=== PATIENT | male | born 1960 | race American Indian/Alaskan Native ===

== ENCOUNTER 2022-01-10 17:05 | Inpatient (IN) | payer MEDICAID ==
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
[2022-01-11] MEDS: FOLIC ACID 1 MG TAB PO SCH (09:55)
[2022-01-11] MEDS: DULoxetine 30 MG CAP PO SCH ×2 (09:55→21:19)
[2022-01-11] MEDS: PREGABALIN 50 MG CAP PO SCH (09:55)
[2022-01-11] MEDS: THIAMINE 100 MG TAB PO SCH (09:55)
[2022-01-11] MEDS: amLODIPine 10 MG TAB PO SCH (09:55)
[2022-01-11] MEDS: NICOTINE 14 MG/24 HR PATCH TD SCH (09:59)
[2022-01-11] MEDS ORDERED: NON-FORMULARY EACH (Pregabalin [Lyrica] 100 MG Capsule) PO SCH (10:00)
--- NOTE | 2022-01-11 11:44 | Consultation ---
History of Present Illness - History of Present Illness HPI: 61-year-old male with past medical history of hypertension, chronic pain, bipolar disorder presenting to our facility with complaint of ongoing depression x3 weeks. He was seen at [facility] for suicidal ideation and auditory hallucinations several weeks back. He is not currently suicidal. Patient does have a significant polysubstance abuse history. Internal medicine service consulted for medical management. PMHx: Essential hypertension, chronic pain PSHx: Denies FHx: Reviewed noncontributory SHx: Tobacco use-admits ETOH Use-admits Recreational Drug Use-admits, crack, THC Single, homeless Medications and Allergies Allergies Allergy/AdvReac Type Severity Reaction Status Date / Time aspirin AdvReac Angioedema Verified 11/15/21 18:58 nitroglycerin AdvReac Swelling Verified 11/15/21 15:19 Home Medications Medication Instructions Recorded Confirmed Last Taken Type Folic Acid [Folvite] 1 mg PO QDAY 11/15/21 01/11/22 Unknown History Losartan [Cozaar] 100 mg PO QDAY 11/15/21 01/11/22 Unknown History Pregabalin [Lyrica] 100 mg PO DAILY 11/15/21 01/11/22 11/16/21 10:00 History Thiamine [Vitamin B-1] 100 mg PO QDAY 11/15/21 01/11/22 Unknown History amLODIPine 10 mg PO DAILY 11/15/21 01/11/22 Unknown History DULoxetine [Cymbalta] 60 mg PO BID #120 capsule 11/22/21 01/11/22 Unknown Rx Melatonin [Melatonin 5MG TAB] 5 mg PO QHS PRN #30 tablet 11/22/21 01/11/22 Unknown Rx Nicotine [Habitrol] 14 mg TD DAILY #30 patch 11/22/21 01/11/22 Unknown Rx QUEtiapine [SEROquel] 100 mg PO QAM #30 tablet 11/22/21 01/11/22 Unknown Rx QUEtiapine [SEROquel] 300 mg PO QHS #90 tablet 11/22/21 01/11/22 Unknown Rx Active Meds: Active Medications Amlodipine Besylate (Amlodipine 10 Mg Tab) 10 mg PO DAILY [facility] Last Admin: 01/11/22 09:55 Dose: Not Given Duloxetine HCl (Duloxetine 30 Mg Cap) 60 mg PO BID [facility] Last Admin: 01/11/22 09:55 Dose: 60 mg Folic Acid (Folic Acid 1 Mg Tab) 1 mg PO QDAY [facility] Last Admin: 01/11/22 09:55 Dose: 1 mg Melatonin (Melatonin 5 Mg Tab) 5 mg PO QHS PRN PRN Reason: Sleep Nicotine (Nicotine 14 Mg/24 Hr Patch) 14 mg TD DAILY [facility] Last Admin: 01/11/22 09:59 Dose: 14 mg Pregabalin (Pregabalin 50 Mg Cap) 100 mg PO DAILY [facility] Last Admin: 01/11/22 09:55 Dose: 100 mg Quetiapine Fumarate (Quetiapine 25 Mg Tab) 50 mg PO QHS [facility] Thiamine HCl (Thiamine 100 Mg Tab) 100 mg PO QDAY [facility] Last Admin: 01/11/22 09:55 Dose: 100 mg Review of Systems All systems: negative (Negative except for stated in HPI) Exam - Physical Exam Narrative exam: Physical Exam: VITAL SIGNS: Reviewed. GENERAL: The patient appears normally developed, Vital signs as documented. HEAD: No signs of head trauma. EYES: Pupils are equal. Extraocular motions intact. EARS: Hearing grossly intact. MOUTH: Oropharynx is normal. NECK: No adenopathy, no JVD. CHEST: Chest with clear breath sounds bilaterally. No wheezes, rales, or rhonchi. CARDIAC: Regular rate and rhythm. S1 and S2, without murmurs, gallops, or rubs. VASCULAR: No Edema. Peripheral pulses normal and equal in all extremities. ABDOMEN: Soft, non tender and non distended. No rebound or guarding, and no masses palpated. Bowel Sounds normal. MUSCULOSKELETAL: Good range of motion of all major joints. Extremities without clubbing, cyanosis or edema. NEUROLOGIC EXAM: Alert and oriented x 4. no focal sensory or strength deficits. PSYCHIATRIC: Mood normal. SKIN: detail exam as documented in skin assessment - Constitutional Vitals: Temp Pulse Resp BP Pulse Ox 97.5 F L 105 H 16 108/80 98 01/11/22 07:37 01/11/22 09:55 01/11/22 07:37 01/11/22 09:55 01/11/22 07:37 Results - Labs CBC & Chem 7: 01/11/22 13:40 01/11/22 13:40 Assessment and Plan #Bipolar disorder #Depression #Chronic pain #Hypertension #Obstructive sleep apnea #Obesity Hypoventilation Syndrome #Polysubstance abuse #Methamphetamine abuse #THC abuse #Cocaine abuse #Alcohol abuse - behavioral health counseling administered which included education on benefits of alcohol cessation as well as options for quitting. +15 min. #Advance care planning Disease education conducted, care plan discussed, diagnoses discussed, prognosis discussed, patient is full code, patient acknowledges understanding and agree with care plan, +30 minutes. Plan -Psychiatric medication management per inpatient psych service -Monitor blood pressure daily -Accu-Cheks ACHS -Resume amlodipine Resume home pregabalin, duloxetine. - patient also takes oxycodone 10/325 mg po tid per [place] PDMP aware. will restart but at lower dose. can escalate if pain is still not under control. - would also recommend bipap qhs as patient has ohs. Was seen on a prior admission at [facility] and had PM hypoxia and daytime somnelence without bipap. -Laboratory work pending, will follow-up when completed. IM service will continue to follow while patient remains in hospital.
[2022-01-11 13:53] LABS: Basophils % (Auto) 0.4 % (0.0-1.8); Eosinophils # (Auto) 0.1 K/mm3 (0.0-0.4); Eosinophils % (Auto) 1.8 % (0.0-4.3); Hematocrit 42.9 % (35.5-45.6); Hemoglobin 14.8 gm/dl (11.8-15.2); Lymphocytes # (Auto) 1.1 K/mm3 (1.2-5.4); Lymphocytes % (Auto) 24.5 % (13.4-35.0); Mean Corpuscular HGB Conc 35 % (32-34); Mean Corpuscular Volume 99 fl (84-94); Monocytes # (Auto) 0.6 K/mm3 (0.0-0.8); Platelet Count 182 K/mm3 (140-440); Red Blood Count 4.35 M/mm3 (3.65-5.03); Red Cell Distribution Width 17.7 % (13.2-15.2)
[2022-01-11 14:19] LABS: Alanine Aminotransferase 30 units/L (7-56); Albumin 3.8 g/dL (3.9-5); BUN/Creatinine Ratio 11; Blood Urea Nitrogen 9 mg/dL (9-20); Calcium 9.9 mg/dL (8.4-10.2); Chol/HDL Ratio 1.75 %; HDL Cholesterol 101 mg/dL (40-59); Hemolysis Index 8; LDL Cholesterol,Direct 59 mg/dL (50-130)
[2022-01-11 14:21] LABS: Hepatitis B Surface Antigen Non-Reactive (Negative); Hepatitis C Virus Antibody Reactive (NonReactive)
[2022-01-11] MEDS ORDERED: oxyCODONE /ACETAMINOPHEN 5-325MG TAB PO PRN (15:24)
[2022-01-11] MEDS: MELATONIN 5 MG TAB PO PRN (21:16)
[2022-01-11] MEDS: oxyCODONE /ACETAMINOPHEN 5-325MG TAB PO PRN ×2 (21:17→21:19)
[2022-01-11] MEDS: QUEtiapine 25 MG TAB PO SCH (21:18)
--- NOTE | 2022-01-12 08:28 | Progress Note ---
Assessment and Plan Assessment and plan: #Bipolar disorder #Depression #Chronic pain #Hypertension #Obstructive sleep apnea #Obesity Hypoventilation Syndrome #Polysubstance abuse #Methamphetamine abuse #THC abuse #Cocaine abuse #Alcohol abuse - behavioral health counseling administered which included education on benefits of alcohol cessation as well as options for quitting. +15 min. #Advance care planning Disease education conducted, care plan discussed, diagnoses discussed, prognosis discussed, patient is full code, patient acknowledges understanding and agree with care plan, +30 minutes. Plan -Psychiatric medication management per inpatient psych service -Monitor blood pressure daily -Accu-Cheks ACHS -Resume amlodipine Resume home pregabalin, duloxetine. - patient also takes oxycodone 10/325 mg po tid per [place] PDMP aware. will restart but at lower dose. can escalate if pain is still not under control. - d/w government affairs specialist, patient had been eval OP for JORGE LUIS, did not need bipap. BIPAP order d/c. -Laboratory work pending, will follow-up when completed. IM service will continue to follow while patient remains in hospital. History Interval history: No acute complaints. Hospitalist Physical - Physical exam Narrative exam: Physical Exam: VITAL SIGNS: Reviewed. GENERAL: The patient appears normally developed, Vital signs as documented. HEAD: No signs of head trauma. EYES: Pupils are equal. Extraocular motions intact. EARS: Hearing grossly intact. MOUTH: Oropharynx is normal. NECK: No adenopathy, no JVD. CHEST: Chest with clear breath sounds bilaterally. No wheezes, rales, or rhonchi. CARDIAC: Regular rate and rhythm. S1 and S2, without murmurs, gallops, or rubs. VASCULAR: No Edema. Peripheral pulses normal and equal in all extremities. ABDOMEN: Soft, non tender and non distended. No rebound or guarding, and no masses palpated. Bowel Sounds normal. MUSCULOSKELETAL: Good range of motion of all major joints. Extremities without clubbing, cyanosis or edema. NEUROLOGIC EXAM: Alert and oriented x 4. no focal sensory or strength deficits. PSYCHIATRIC: Mood normal. SKIN: detail exam as documented in skin assessment - Constitutional Vitals: Temp Pulse Resp BP Pulse Ox 98.3 F 86 16 131/86 98 01/12/22 07:32 01/12/22 07:32 01/12/22 07:32 01/12/22 07:32 01/12/22 07:32 Results - Labs CBC & Chem 7: 01/11/22 13:40 01/11/22 13:40 Labs: Laboratory Last Values WBC 4.3 K/mm3 (4.5-11.0) L 01/11/22 13:40 RBC 4.35 M/mm3 (3.65-5.03) 01/11/22 13:40 Hgb 14.8 gm/dl (11.8-15.2) 01/11/22 13:40 Hct 42.9 % (35.5-45.6) 01/11/22 13:40 MCV 99 fl (84-94) H 01/11/22 13:40 MCH 34 pg (28-32) H 01/11/22 13:40 MCHC 35 % (32-34) H 01/11/22 13:40 RDW 17.7 % (13.2-15.2) H 01/11/22 13:40 Plt Count 182 K/mm3 (140-440) 01/11/22 13:40 Lymph % (Auto) 24.5 % (13.4-35.0) 01/11/22 13:40 Barron % (Auto) 13.0 % (0.0-7.3) H 01/11/22 13:40 Eos % (Auto) 1.8 % (0.0-4.3) 01/11/22 13:40 Baso % (Auto) 0.4 % (0.0-1.8) 01/11/22 13:40 Lymph # (Auto) 1.1 K/mm3 (1.2-5.4) L 01/11/22 13:40 Barron # (Auto) 0.6 K/mm3 (0.0-0.8) 01/11/22 13:40 Eos # (Auto) 0.1 K/mm3 (0.0-0.4) 01/11/22 13:40 Baso # (Auto) 0.0 K/mm3 (0.0-0.1) 01/11/22 13:40 Seg Neutrophils % 60.3 % (40.0-70.0) 01/11/22 13:40 Seg Neutrophils # 2.6 K/mm3 (1.8-7.7) 01/11/22 13:40 Sodium 137 mmol/L (137-145) 01/11/22 13:40 Potassium 3.6 mmol/L (3.6-5.0) 01/11/22 13:40 Chloride 98.9 mmol/L (98-107) 01/11/22 13:40 Carbon Dioxide 26 mmol/L (22-30) 01/11/22 13:40 Anion Gap 16 mmol/L 01/11/22 13:40 BUN 9 mg/dL (9-20) 01/11/22 13:40 Creatinine 0.8 mg/dL (0.8-1.3) 01/11/22 13:40 Estimated GFR > 60 ml/min 01/11/22 13:40 BUN/Creatinine Ratio 11 % 01/11/22 13:40 Glucose 127 mg/dL (75-100) H 01/11/22 13:40 Hemoglobin A1c 6.0 % (4-6) 01/11/22 13:40 Calcium 9.9 mg/dL (8.4-10.2) 01/11/22 13:40 Total Bilirubin 0.50 mg/dL (0.1-1.2) 01/11/22 13:40 AST 41 units/L (5-40) H 01/11/22 13:40 ALT 30 units/L (7-56) 01/11/22 13:40 Alkaline Phosphatase 104 units/L (35-129) 01/11/22 13:40 Total Protein 6.9 g/dL (6.3-8.2) 01/11/22 13:40 Albumin 3.8 g/dL (3.9-5) L 01/11/22 13:40 Albumin/Globulin Ratio 1.2 % 01/11/22 13:40 Triglycerides 96 mg/dL (2-149) 01/11/22 13:40 Cholesterol 177 mg/dL (50-199) 01/11/22 13:40 LDL Cholesterol Direct 59 mg/dL (50-130) 01/11/22 13:40 HDL Cholesterol 101 mg/dL (40-59) H 01/11/22 13:40 Cholesterol/HDL Ratio 1.75 % 01/11/22 13:40 TSH 1.610 mlU/mL (0.270-4.200) 01/11/22 13:40 Hepatitis A IgM Ab Non-reactive (NonReactive) 01/11/22 13:40 Hep Bs Antigen Non-reactive (Negative) 01/11/22 13:40 Hep B Core IgM Ab Non-reactive (NonReactive) 01/11/22 13:40 Hepatitis C Antibody Reactive (NonReactive) A 01/11/22 13:40 Gamino/IV: Voiding Method Toilet Active Medications - Current Medications Current Medications: Generic Name Dose Route Start Last Admin Trade Name Freq PRN Reason Stop Dose Admin Amlodipine Besylate 10 mg 01/11/22 10:00 01/11/22 09:55 Amlodipine 10 Mg Tab PO Not Given DAILY [facility] Duloxetine HCl 60 mg 01/11/22 10:00 01/11/22 21:19 Duloxetine 30 Mg Cap PO Not Given BID [facility] Folic Acid 1 mg 01/11/22 10:00 01/11/22 09:55 Folic Acid 1 Mg Tab PO 1 mg QDAY [facility] Administration Melatonin 5 mg 01/11/22 09:07 01/11/22 21:16 Melatonin 5 Mg Tab PO 5 mg QHS PRN Administration Sleep Nicotine 14 mg 01/11/22 10:00 01/11/22 09:59 Nicotine 14 Mg/24 Hr Patch TD 14 mg DAILY [facility] Administration Oxycodone/Acetaminophen 1 tab 01/11/22 18:23 01/11/22 21:19 Oxycodone /Acetaminophen 5-325mg Tab PO 1 tab Q12H PRN Administration Pain, Moderate (4-6) Pregabalin 100 mg 01/11/22 10:00 01/11/22 09:55 Pregabalin 50 Mg Cap PO 100 mg DAILY [facility] Administration Quetiapine Fumarate 50 mg 01/11/22 22:00 01/11/22 21:18 Quetiapine 25 Mg Tab PO 50 mg QHS [facility] Administration Thiamine HCl 100 mg 01/11/22 10:00 01/11/22 09:55 Thiamine 100 Mg Tab PO 100 mg QDAY [facility] Administration
--- NOTE | 2022-01-12 09:13 | Progress Note ---
Subjective Date of service: 01/12/22 Principal diagnosis: Bipolar Disorder Subjective Comment: The patient was seen today. He is irritable and evasive. He hardly talks and rolls over and pulls the cover up. He says he's depressed about his health and "all sorts of stuff." He denies SI/HI or hallucinations. REVIEW OF SYSTEMS Constitutional: Negative for weight loss ENT: Negative for stridor Respiratory: Negative for cough or hemoptysis All other systems reviewed and are negative MENTAL STATUS EXAMINATION General Appearance and Behavior: Age appropriate, wearing appropriate clothes, cooperative, polite with questioning, good eye contact Cooperation: cooperative Psychomotor Behavior: Psychomotor normal Mood: Depressed Affect and affective range: congruent with stated affect Thought Process: Goal directed Thought Content: Reality oriented Speech: Normal volume, Regular rate and rhythm Suicidal Ideation: Denies Homicidal Ideation: Denies Hallucination: Denies Delusions:Denies Impulse Control: Limited Insight and Judgment: Limited Memory: Intact Attention:attentive Orientation: Alert and oriented Diagnoses: Bipolar disorder Treatment Plan Patient admitted for inpatient psychiatric evaluation, medication adjustment and close monitoring The patient's behavior, mood, sleep and appetite will be closely monitored. Patient enrolled in individual and group therapeutic sessions and encouraged to attend. Patient provided with a safe and structured environment. Patient's physical health needs will be addressed by the Hospitalist. Hospitalist Consulted Labs including CBC, CMP, Lipid profile and Hemoglobin A1C levels ordered for baseline reference Social Assessment will be completed and the Debt And Budget Counselor will work with patient and family to ensure a suitable and safe disposition Medication adjustment will be made as clinically indicated Continue home meds Usual Wellness Bahai/Preservation: - Start Trazodone 50 mg po QHS & 50 mg po QHS PRN between 10 PM & 2 AM for insomnia - Start Melatonin 5 mg po QHS to promote circadian rhythm The patient agreed on the treatment plan, understood the risk, benefit, alternative treatment, potential consequence of no treatment, and gave informed consent. Estimated days: 7 Post hospital care: primary care provider, psychiatric provider Case staffed with Dr. Fischer Medications and Allergies Allergies Allergy/AdvReac Type Severity Reaction Status Date / Time aspirin AdvReac Angioedema Verified 11/15/21 18:58 nitroglycerin AdvReac Swelling Verified 11/15/21 15:19 Home Medications Medication Instructions Recorded Confirmed Last Taken Type Folic Acid [Folvite] 1 mg PO QDAY 11/15/21 01/11/22 Unknown History Losartan [Cozaar] 100 mg PO QDAY 11/15/21 01/11/22 Unknown History Pregabalin [Lyrica] 100 mg PO DAILY 11/15/21 01/11/22 11/16/21 10:00 History Thiamine [Vitamin B-1] 100 mg PO QDAY 11/15/21 01/11/22 Unknown History amLODIPine 10 mg PO DAILY 11/15/21 01/11/22 Unknown History DULoxetine [Cymbalta] 60 mg PO BID #120 capsule 11/22/21 01/11/22 Unknown Rx Melatonin [Melatonin 5MG TAB] 5 mg PO QHS PRN #30 tablet 11/22/21 01/11/22 Unknown Rx Nicotine [Habitrol] 14 mg TD DAILY #30 patch 11/22/21 01/11/22 Unknown Rx QUEtiapine [SEROquel] 100 mg PO QAM #30 tablet 11/22/21 01/11/22 Unknown Rx QUEtiapine [SEROquel] 300 mg PO QHS #90 tablet 11/22/21 01/11/22 Unknown Rx Active Meds: Active Medications Amlodipine Besylate (Amlodipine 10 Mg Tab) 10 mg PO DAILY [facility] Last Admin: 01/11/22 09:55 Dose: Not Given Duloxetine HCl (Duloxetine 30 Mg Cap) 60 mg PO BID [facility] Last Admin: 01/11/22 21:19 Dose: Not Given Folic Acid (Folic Acid 1 Mg Tab) 1 mg PO QDAY [facility] Last Admin: 01/11/22 09:55 Dose: 1 mg Melatonin (Melatonin 5 Mg Tab) 5 mg PO QHS PRN PRN Reason: Sleep Last Admin: 01/11/22 21:16 Dose: 5 mg Nicotine (Nicotine 14 Mg/24 Hr Patch) 14 mg TD DAILY [facility] Last Admin: 01/11/22 09:59 Dose: 14 mg Oxycodone/Acetaminophen (Oxycodone /Acetaminophen 5-325mg Tab) 1 tab PO Q12H PRN PRN Reason: Pain, Moderate (4-6) Last Admin: 01/11/22 21:19 Dose: 1 tab Pregabalin (Pregabalin 50 Mg Cap) 100 mg PO DAILY [facility] Last Admin: 01/11/22 09:55 Dose: 100 mg Quetiapine Fumarate (Quetiapine 25 Mg Tab) 50 mg PO QHS [facility] Last Admin: 01/11/22 21:18 Dose: 50 mg Thiamine HCl (Thiamine 100 Mg Tab) 100 mg PO QDAY [facility] Last Admin: 01/11/22 09:55 Dose: 100 mg Results - Results Labs/Vitals: Laboratory Last Values WBC 4.3 K/mm3 (4.5-11.0) L 01/11/22 13:40 RBC 4.35 M/mm3 (3.65-5.03) 01/11/22 13:40 Hgb 14.8 gm/dl (11.8-15.2) 01/11/22 13:40 Hct 42.9 % (35.5-45.6) 01/11/22 13:40 MCV 99 fl (84-94) H 01/11/22 13:40 MCH 34 pg (28-32) H 01/11/22 13:40 MCHC 35 % (32-34) H 01/11/22 13:40 RDW 17.7 % (13.2-15.2) H 01/11/22 13:40 Plt Count 182 K/mm3 (140-440) 01/11/22 13:40 Lymph % (Auto) 24.5 % (13.4-35.0) 01/11/22 13:40 [place] % (Auto) 13.0 % (0.0-7.3) H 01/11/22 13:40 Eos % (Auto) 1.8 % (0.0-4.3) 01/11/22 13:40 Baso % (Auto) 0.4 % (0.0-1.8) 01/11/22 13:40 Lymph # (Auto) 1.1 K/mm3 (1.2-5.4) L 01/11/22 13:40 [place] # (Auto) 0.6 K/mm3 (0.0-0.8) 01/11/22 13:40 Eos # (Auto) 0.1 K/mm3 (0.0-0.4) 01/11/22 13:40 Baso # (Auto) 0.0 K/mm3 (0.0-0.1) 01/11/22 13:40 Seg Neutrophils % 60.3 % (40.0-70.0) 01/11/22 13:40 Seg Neutrophils # 2.6 K/mm3 (1.8-7.7) 01/11/22 13:40 Sodium 137 mmol/L (137-145) 01/11/22 13:40 Potassium 3.6 mmol/L (3.6-5.0) 01/11/22 13:40 Chloride 98.9 mmol/L (98-107) 01/11/22 13:40 Carbon Dioxide 26 mmol/L (22-30) 01/11/22 13:40 Anion Gap 16 mmol/L 01/11/22 13:40 BUN 9 mg/dL (9-20) 01/11/22 13:40 Creatinine 0.8 mg/dL (0.8-1.3) 01/11/22 13:40 Estimated GFR > 60 ml/min 01/11/22 13:40 BUN/Creatinine Ratio 11 % 01/11/22 13:40 Glucose 127 mg/dL (75-100) H 01/11/22 13:40 Hemoglobin A1c 6.0 % (4-6) 01/11/22 13:40 Calcium 9.9 mg/dL (8.4-10.2) 01/11/22 13:40 Total Bilirubin 0.50 mg/dL (0.1-1.2) 01/11/22 13:40 AST 41 units/L (5-40) H 01/11/22 13:40 ALT 30 units/L (7-56) 01/11/22 13:40 Alkaline Phosphatase 104 units/L (35-129) 01/11/22 13:40 Total Protein 6.9 g/dL (6.3-8.2) 01/11/22 13:40 Albumin 3.8 g/dL (3.9-5) L 01/11/22 13:40 Albumin/Globulin Ratio 1.2 % 01/11/22 13:40 Triglycerides 96 mg/dL (2-149) 01/11/22 13:40 Cholesterol 177 mg/dL (50-199) 01/11/22 13:40 LDL Cholesterol Direct 59 mg/dL (50-130) 01/11/22 13:40 HDL Cholesterol 101 mg/dL (40-59) H 01/11/22 13:40 Cholesterol/HDL Ratio 1.75 % 01/11/22 13:40 TSH 1.610 mlU/mL (0.270-4.200) 01/11/22 13:40 Hepatitis A IgM Ab Non-reactive (NonReactive) 01/11/22 13:40 Hep Bs Antigen Non-reactive (Negative) 01/11/22 13:40 Hep B Core IgM Ab Non-reactive (NonReactive) 01/11/22 13:40 Hepatitis C Antibody Reactive (NonReactive) A 01/11/22 13:40 Last Vital Signs Temp 98.3 F 01/12/22 07:32 Pulse 86 01/12/22 07:32 Resp 16 01/12/22 07:32 BP 131/86 01/12/22 07:32 Pulse Ox 98 01/12/22 07:32
[2022-01-12] MEDS: FOLIC ACID 1 MG TAB PO SCH (10:23)
[2022-01-12] MEDS: amLODIPine 10 MG TAB PO SCH (10:23)
[2022-01-12] MEDS: DULoxetine 30 MG CAP PO SCH ×2 (10:23→21:01)
[2022-01-12] MEDS: PREGABALIN 50 MG CAP PO SCH (10:23)
[2022-01-12] MEDS: THIAMINE 100 MG TAB PO SCH (10:23)
[2022-01-12] MEDS: NICOTINE 14 MG/24 HR PATCH TD SCH (10:26)
[2022-01-12] MEDS: oxyCODONE /ACETAMINOPHEN 5-325MG TAB PO PRN ×2 (10:30→22:21)
--- NOTE | 2022-01-12 13:53 | XRay Report ---
CHEST 1 VIEW 01/12/2022 12:05 PM INDICATION / CLINICAL INFORMATION: r/o TB. COMPARISON: 11/20/2021 FINDINGS: SUPPORT DEVICES: None. HEART / MEDIASTINUM: No significant abnormality. LUNGS / PLEURA: No significant pulmonary or pleural abnormality. No pneumothorax. ADDITIONAL FINDINGS: No significant additional findings. IMPRESSION: 1. No acute findings. Signer Name: Jet Chinchilla Jr, MD Signed: 01/12/2022 1:49 PM Workstation Name: [id number]
[2022-01-12] MEDS: MELATONIN 5 MG TAB PO PRN (21:02)
[2022-01-12] MEDS: QUEtiapine 25 MG TAB PO SCH (21:02)
--- NOTE | 2022-01-13 08:23 | Progress Note ---
Subjective Date of service: 01/13/22 Principal diagnosis: Bipolar Disorder Subjective Comment: The patient was seen today. He says he feels ok, but states he did not sleep well. He is asking for an increase of seroquel. He says he is depressed but feels a little better. He denies SI/HI or hallucinations of any kind. REVIEW OF SYSTEMS Constitutional: Negative for weight loss ENT: Negative for stridor Respiratory: Negative for cough or hemoptysis All other systems reviewed and are negative MENTAL STATUS EXAMINATION General Appearance and Behavior: Age appropriate, wearing appropriate clothes, cooperative, polite with questioning, good eye contact Cooperation: cooperative Psychomotor Behavior: Psychomotor normal Mood: Depressed Affect and affective range: congruent with stated affect Thought Process: Goal directed Thought Content: Reality oriented Speech: Normal volume, Regular rate and rhythm Suicidal Ideation: Denies Homicidal Ideation: Denies Hallucination: Denies Delusions: Denies Impulse Control: Limited Insight and Judgment: Limited Memory: Intact Attention:attentive Orientation: Alert and oriented Diagnoses: Bipolar disorder Treatment Plan Patient admitted for inpatient psychiatric evaluation, medication adjustment and close monitoring The patient's behavior, mood, sleep and appetite will be closely monitored. Patient enrolled in individual and group therapeutic sessions and encouraged to attend. Patient provided with a safe and structured environment. Patient's physical health needs will be addressed by the Hospitalist. Hospitalist Consulted Labs including CBC, CMP, Lipid profile and Hemoglobin A1C levels ordered for baseline reference Social Assessment will be completed and the Metal Trimmer will work with patient and family to ensure a suitable and safe disposition Medication adjustment will be made as clinically indicated Increase Seroquel 100mg po qhs Usual Wellness Mu-Ism/Preservation: - Start Trazodone 50 mg po QHS & 50 mg po QHS PRN between 10 PM & 2 AM for insomnia - Start Melatonin 5 mg po QHS to promote circadian rhythm The patient agreed on the treatment plan, understood the risk, benefit, alternative treatment, potential consequence of no treatment, and gave informed consent. Estimated days: 7 Post hospital care: primary care provider, psychiatric provider Case staffed with Dr. Fischer Medications and Allergies Allergies Allergy/AdvReac Type Severity Reaction Status Date / Time aspirin AdvReac Angioedema Verified 11/15/21 18:58 nitroglycerin AdvReac Swelling Verified 11/15/21 15:19 Home Medications Medication Instructions Recorded Confirmed Last Taken Type Folic Acid [Folvite] 1 mg PO QDAY 11/15/21 01/11/22 Unknown History Losartan [Cozaar] 100 mg PO QDAY 11/15/21 01/11/22 Unknown History Pregabalin [Lyrica] 100 mg PO DAILY 11/15/21 01/11/22 11/16/21 10:00 History Thiamine [Vitamin B-1] 100 mg PO QDAY 11/15/21 01/11/22 Unknown History amLODIPine 10 mg PO DAILY 11/15/21 01/11/22 Unknown History DULoxetine [Cymbalta] 60 mg PO BID #120 capsule 11/22/21 01/11/22 Unknown Rx Melatonin [Melatonin 5MG TAB] 5 mg PO QHS PRN #30 tablet 11/22/21 01/11/22 Unknown Rx Nicotine [Habitrol] 14 mg TD DAILY #30 patch 11/22/21 01/11/22 Unknown Rx QUEtiapine [SEROquel] 100 mg PO QAM #30 tablet 11/22/21 01/11/22 Unknown Rx QUEtiapine [SEROquel] 300 mg PO QHS #90 tablet 11/22/21 01/11/22 Unknown Rx Active Meds: Active Medications Amlodipine Besylate (Amlodipine 10 Mg Tab) 10 mg PO DAILY [facility] Last Admin: 01/12/22 10:23 Dose: 10 mg Duloxetine HCl (Duloxetine 30 Mg Cap) 60 mg PO BID [facility] Last Admin: 01/12/22 21:01 Dose: Not Given Folic Acid (Folic Acid 1 Mg Tab) 1 mg PO QDAY [facility] Last Admin: 01/12/22 10:23 Dose: 1 mg Melatonin (Melatonin 5 Mg Tab) 5 mg PO QHS PRN PRN Reason: Sleep Last Admin: 01/12/22 21:02 Dose: 5 mg Nicotine (Nicotine 14 Mg/24 Hr Patch) 14 mg TD DAILY [facility] Last Admin: 01/12/22 10:26 Dose: Not Given Oxycodone/Acetaminophen (Oxycodone /Acetaminophen 5-325mg Tab) 1 tab PO Q12H PRN PRN Reason: Pain, Moderate (4-6) Last Admin: 01/12/22 22:21 Dose: 1 tab Pregabalin (Pregabalin 50 Mg Cap) 100 mg PO DAILY [facility] Last Admin: 01/12/22 10:23 Dose: 100 mg Quetiapine Fumarate (Quetiapine 25 Mg Tab) 50 mg PO QHS [facility] Last Admin: 01/12/22 21:02 Dose: 50 mg Thiamine HCl (Thiamine 100 Mg Tab) 100 mg PO QDAY [facility] Last Admin: 01/12/22 10:23 Dose: 100 mg Results - Results Labs/Vitals: Laboratory Last Values WBC 4.3 K/mm3 (4.5-11.0) L 01/11/22 13:40 RBC 4.35 M/mm3 (3.65-5.03) 01/11/22 13:40 Hgb 14.8 gm/dl (11.8-15.2) 01/11/22 13:40 Hct 42.9 % (35.5-45.6) 01/11/22 13:40 MCV 99 fl (84-94) H 01/11/22 13:40 MCH 34 pg (28-32) H 01/11/22 13:40 MCHC 35 % (32-34) H 01/11/22 13:40 RDW 17.7 % (13.2-15.2) H 01/11/22 13:40 Plt Count 182 K/mm3 (140-440) 01/11/22 13:40 Lymph % (Auto) 24.5 % (13.4-35.0) 01/11/22 13:40 [place] % (Auto) 13.0 % (0.0-7.3) H 01/11/22 13:40 Eos % (Auto) 1.8 % (0.0-4.3) 01/11/22 13:40 Baso % (Auto) 0.4 % (0.0-1.8) 01/11/22 13:40 Lymph # (Auto) 1.1 K/mm3 (1.2-5.4) L 01/11/22 13:40 [place] # (Auto) 0.6 K/mm3 (0.0-0.8) 01/11/22 13:40 Eos # (Auto) 0.1 K/mm3 (0.0-0.4) 01/11/22 13:40 Baso # (Auto) 0.0 K/mm3 (0.0-0.1) 01/11/22 13:40 Seg Neutrophils % 60.3 % (40.0-70.0) 01/11/22 13:40 Seg Neutrophils # 2.6 K/mm3 (1.8-7.7) 01/11/22 13:40 Sodium 137 mmol/L (137-145) 01/11/22 13:40 Potassium 3.6 mmol/L (3.6-5.0) 01/11/22 13:40 Chloride 98.9 mmol/L (98-107) 01/11/22 13:40 Carbon Dioxide 26 mmol/L (22-30) 01/11/22 13:40 Anion Gap 16 mmol/L 01/11/22 13:40 BUN 9 mg/dL (9-20) 01/11/22 13:40 Creatinine 0.8 mg/dL (0.8-1.3) 01/11/22 13:40 Estimated GFR > 60 ml/min 01/11/22 13:40 BUN/Creatinine Ratio 11 % 01/11/22 13:40 Glucose 127 mg/dL (75-100) H 01/11/22 13:40 Hemoglobin A1c 6.0 % (4-6) 01/11/22 13:40 Calcium 9.9 mg/dL (8.4-10.2) 01/11/22 13:40 Total Bilirubin 0.50 mg/dL (0.1-1.2) 01/11/22 13:40 AST 41 units/L (5-40) H 01/11/22 13:40 ALT 30 units/L (7-56) 01/11/22 13:40 Alkaline Phosphatase 104 units/L (35-129) 01/11/22 13:40 Total Protein 6.9 g/dL (6.3-8.2) 01/11/22 13:40 Albumin 3.8 g/dL (3.9-5) L 01/11/22 13:40 Albumin/Globulin Ratio 1.2 % 01/11/22 13:40 Triglycerides 96 mg/dL (2-149) 01/11/22 13:40 Cholesterol 177 mg/dL (50-199) 01/11/22 13:40 LDL Cholesterol Direct 59 mg/dL (50-130) 01/11/22 13:40 HDL Cholesterol 101 mg/dL (40-59) H 01/11/22 13:40 Cholesterol/HDL Ratio 1.75 % 01/11/22 13:40 TSH 1.610 mlU/mL (0.270-4.200) 01/11/22 13:40 Syphilis IgG/IgM Ab Nonreactive (NonReactive) 01/11/22 12:19 Hepatitis A IgM Ab Non-reactive (NonReactive) 01/11/22 13:40 Hep Bs Antigen Non-reactive (Negative) 01/11/22 13:40 Hep B Core IgM Ab Non-reactive (NonReactive) 01/11/22 13:40 Hepatitis C Antibody Reactive (NonReactive) A 01/11/22 13:40 Last Vital Signs Temp 98.3 F 01/12/22 19:55 Pulse 87 01/12/22 19:55 Resp 20 01/12/22 19:55 BP 135/92 01/12/22 19:55 Pulse Ox 100 01/12/22 19:55
[2022-01-13] MEDS: FOLIC ACID 1 MG TAB PO SCH (09:03)
[2022-01-13] MEDS: THIAMINE 100 MG TAB PO SCH (09:03)
[2022-01-13] MEDS: PREGABALIN 50 MG CAP PO SCH (09:03)
[2022-01-13] MEDS: DULoxetine 30 MG CAP PO SCH ×2 (09:03→21:14)
[2022-01-13] MEDS: oxyCODONE /ACETAMINOPHEN 5-325MG TAB PO PRN ×2 (09:04→20:48)
[2022-01-13] MEDS: amLODIPine 10 MG TAB PO SCH (09:04)
[2022-01-13] MEDS: NICOTINE 14 MG/24 HR PATCH TD SCH (09:10)
--- NOTE | 2022-01-13 14:11 | Progress Note ---
Assessment and Plan Assessment and plan: #Bipolar disorder #Depression #Chronic pain #Hypertension #Obstructive sleep apnea #Obesity Hypoventilation Syndrome #hepatitis C #Polysubstance abuse #Methamphetamine abuse #THC abuse #Cocaine abuse #Alcohol abuse - behavioral health counseling administered which included education on benefits of alcohol cessation as well as options for quitting. +15 min. #Advance care planning Disease education conducted, care plan discussed, diagnoses discussed, prognosis discussed, patient is full code, patient acknowledges understanding and agree with care plan, +30 minutes. Plan -Psychiatric medication management per inpatient psych service -Monitor blood pressure daily -Accu-Cheks ACHS -Resume amlodipine Resume home pregabalin, duloxetine. - patient also takes oxycodone 10/325 mg po tid per [place] PDMP aware. will restart but at lower dose. can escalate if pain is still not under control. - d/w dry pan charger, patient had been eval OP for JORGE LUIS, did not need bipap. BIPAP order d/c. -Laboratory work reviewed. Hep C positive. will need outpatient appt with department of health. IM service will continue to follow while patient remains in hospital. History Interval history: No acute complaints. Hospitalist Physical - Physical exam Narrative exam: Physical Exam: VITAL SIGNS: Reviewed. GENERAL: The patient appears normally developed, Vital signs as documented. HEAD: No signs of head trauma. EYES: Pupils are equal. Extraocular motions intact. EARS: Hearing grossly intact. MOUTH: Oropharynx is normal. NECK: No adenopathy, no JVD. CHEST: Chest with clear breath sounds bilaterally. No wheezes, rales, or rhonchi. CARDIAC: Regular rate and rhythm. S1 and S2, without murmurs, gallops, or rubs. VASCULAR: No Edema. Peripheral pulses normal and equal in all extremities. ABDOMEN: Soft, non tender and non distended. No rebound or guarding, and no masses palpated. Bowel Sounds normal. MUSCULOSKELETAL: Good range of motion of all major joints. Extremities without clubbing, cyanosis or edema. NEUROLOGIC EXAM: Alert and oriented x 4. no focal sensory or strength deficits. PSYCHIATRIC: Mood normal. SKIN: detail exam as documented in skin assessment - Constitutional Vitals: Temp Pulse Resp BP Pulse Ox 98.0 F 81 18 132/83 99 01/13/22 08:11 01/13/22 09:04 01/13/22 08:11 01/13/22 09:04 01/13/22 08:11 Results - Labs CBC & Chem 7: 01/11/22 13:40 01/11/22 13:40 Labs: Laboratory Last Values WBC 4.3 K/mm3 (4.5-11.0) L 01/11/22 13:40 RBC 4.35 M/mm3 (3.65-5.03) 01/11/22 13:40 Hgb 14.8 gm/dl (11.8-15.2) 01/11/22 13:40 Hct 42.9 % (35.5-45.6) 01/11/22 13:40 MCV 99 fl (84-94) H 01/11/22 13:40 MCH 34 pg (28-32) H 01/11/22 13:40 MCHC 35 % (32-34) H 01/11/22 13:40 RDW 17.7 % (13.2-15.2) H 01/11/22 13:40 Plt Count 182 K/mm3 (140-440) 01/11/22 13:40 Lymph % (Auto) 24.5 % (13.4-35.0) 01/11/22 13:40 [place] % (Auto) 13.0 % (0.0-7.3) H 01/11/22 13:40 Eos % (Auto) 1.8 % (0.0-4.3) 01/11/22 13:40 Baso % (Auto) 0.4 % (0.0-1.8) 01/11/22 13:40 Lymph # (Auto) 1.1 K/mm3 (1.2-5.4) L 01/11/22 13:40 [place] # (Auto) 0.6 K/mm3 (0.0-0.8) 01/11/22 13:40 Eos # (Auto) 0.1 K/mm3 (0.0-0.4) 01/11/22 13:40 Baso # (Auto) 0.0 K/mm3 (0.0-0.1) 01/11/22 13:40 Seg Neutrophils % 60.3 % (40.0-70.0) 01/11/22 13:40 Seg Neutrophils # 2.6 K/mm3 (1.8-7.7) 01/11/22 13:40 Sodium 137 mmol/L (137-145) 01/11/22 13:40 Potassium 3.6 mmol/L (3.6-5.0) 01/11/22 13:40 Chloride 98.9 mmol/L (98-107) 01/11/22 13:40 Carbon Dioxide 26 mmol/L (22-30) 01/11/22 13:40 Anion Gap 16 mmol/L 01/11/22 13:40 BUN 9 mg/dL (9-20) 01/11/22 13:40 Creatinine 0.8 mg/dL (0.8-1.3) 01/11/22 13:40 Estimated GFR > 60 ml/min 01/11/22 13:40 BUN/Creatinine Ratio 11 % 01/11/22 13:40 Glucose 127 mg/dL (75-100) H 01/11/22 13:40 Hemoglobin A1c 6.0 % (4-6) 01/11/22 13:40 Calcium 9.9 mg/dL (8.4-10.2) 01/11/22 13:40 Total Bilirubin 0.50 mg/dL (0.1-1.2) 01/11/22 13:40 AST 41 units/L (5-40) H 01/11/22 13:40 ALT 30 units/L (7-56) 01/11/22 13:40 Alkaline Phosphatase 104 units/L (35-129) 01/11/22 13:40 Total Protein 6.9 g/dL (6.3-8.2) 01/11/22 13:40 Albumin 3.8 g/dL (3.9-5) L 01/11/22 13:40 Albumin/Globulin Ratio 1.2 % 01/11/22 13:40 Triglycerides 96 mg/dL (2-149) 01/11/22 13:40 Cholesterol 177 mg/dL (50-199) 01/11/22 13:40 LDL Cholesterol Direct 59 mg/dL (50-130) 01/11/22 13:40 HDL Cholesterol 101 mg/dL (40-59) H 01/11/22 13:40 Cholesterol/HDL Ratio 1.75 % 01/11/22 13:40 TSH 1.610 mlU/mL (0.270-4.200) 01/11/22 13:40 Syphilis IgG/IgM Ab Nonreactive (NonReactive) 01/11/22 12:19 Hepatitis A IgM Ab Non-reactive (NonReactive) 01/11/22 13:40 Hep Bs Antigen Non-reactive (Negative) 01/11/22 13:40 Hep B Core IgM Ab Non-reactive (NonReactive) 01/11/22 13:40 Hepatitis C Antibody Reactive (NonReactive) A 01/11/22 13:40 Gamino/IV: Voiding Method Toilet Active Medications - Current Medications Current Medications: Generic Name Dose Route Start Last Admin Trade Name Freq PRN Reason Stop Dose Admin Amlodipine Besylate 10 mg 01/11/22 10:00 01/13/22 09:04 Amlodipine 10 Mg Tab PO 10 mg DAILY [facility]IMI Administration Duloxetine HCl 60 mg 01/11/22 10:00 01/13/22 09:03 Duloxetine 30 Mg Cap PO 60 mg BID YIMI Administration Folic Acid 1 mg 01/11/22 10:00 01/13/22 09:03 Folic Acid 1 Mg Tab PO 1 mg QDAY YIMI Administration Melatonin 5 mg 01/11/22 09:07 01/12/22 21:02 Melatonin 5 Mg Tab PO 5 mg QHS PRN Administration Sleep Nicotine 14 mg 01/11/22 10:00 01/13/22 09:10 Nicotine 14 Mg/24 Hr Patch TD Not Given DAILY [facility] Oxycodone/Acetaminophen 1 tab 01/11/22 18:23 01/13/22 09:04 Oxycodone /Acetaminophen 5-325mg Tab PO 1 tab Q12H PRN Administration Pain, Moderate (4-6) Pregabalin 100 mg 01/11/22 10:00 01/13/22 09:03 Pregabalin 50 Mg Cap PO 100 mg DAILY [facility]IMI Administration Quetiapine Fumarate 100 mg 01/13/22 22:00 Quetiapine 100 Mg Tab PO QHS YIMI Thiamine HCl 100 mg 01/11/22 10:00 01/13/22 09:03 Thiamine 100 Mg Tab PO 100 mg QDAY [facility]IMI Administration
[2022-01-13] MEDS: QUEtiapine 100 MG TAB PO SCH (21:13)
--- NOTE | 2022-01-14 08:54 | Progress Note ---
Assessment and Plan Assessment and plan: #Bipolar disorder #Depression #Chronic pain #Hypertension #Obstructive sleep apnea #Obesity Hypoventilation Syndrome #hepatitis C #Polysubstance abuse #Methamphetamine abuse #THC abuse #Cocaine abuse #Alcohol abuse - behavioral health counseling administered which included education on benefits of alcohol cessation as well as options for quitting. +15 min. #Advance care planning Disease education conducted, care plan discussed, diagnoses discussed, prognosis discussed, patient is full code, patient acknowledges understanding and agree with care plan, +30 minutes. Plan -Psychiatric medication management per inpatient psych service -Monitor blood pressure daily -Accu-Cheks ACHS -Resume amlodipine Resume home pregabalin, duloxetine. - patient also takes oxycodone 10/325 mg po tid per [place] PDMP aware. will restart but at lower dose. can escalate if pain is still not under control. - d/w hot metal charger, patient had been eval OP for JORGE LUIS, did not need bipap. BIPAP order d/c. -Laboratory work reviewed. Hep C positive. will need outpatient appt with department of health. IM service will continue to follow while patient remains in hospital. History Interval history: No acute complaints. Hospitalist Physical - Physical exam Narrative exam: Physical Exam: VITAL SIGNS: Reviewed. GENERAL: The patient appears normally developed, Vital signs as documented. HEAD: No signs of head trauma. EYES: Pupils are equal. Extraocular motions intact. EARS: Hearing grossly intact. MOUTH: Oropharynx is normal. NECK: No adenopathy, no JVD. CHEST: Chest with clear breath sounds bilaterally. No wheezes, rales, or rhonchi. CARDIAC: Regular rate and rhythm. S1 and S2, without murmurs, gallops, or rubs. VASCULAR: No Edema. Peripheral pulses normal and equal in all extremities. ABDOMEN: Soft, non tender and non distended. No rebound or guarding, and no masses palpated. Bowel Sounds normal. MUSCULOSKELETAL: Good range of motion of all major joints. Extremities without clubbing, cyanosis or edema. NEUROLOGIC EXAM: Alert and oriented x 4. no focal sensory or strength deficits. PSYCHIATRIC: Mood normal. SKIN: detail exam as documented in skin assessment - Constitutional Vitals: Temp Pulse Resp BP Pulse Ox 98.4 F 75 18 131/83 98 01/13/22 19:35 01/13/22 19:35 01/13/22 20:48 01/13/22 19:35 01/13/22 19:35 Results - Labs CBC & Chem 7: 01/11/22 13:40 01/11/22 13:40 Labs: Laboratory Last Values WBC 4.3 K/mm3 (4.5-11.0) L 01/11/22 13:40 RBC 4.35 M/mm3 (3.65-5.03) 01/11/22 13:40 Hgb 14.8 gm/dl (11.8-15.2) 01/11/22 13:40 Hct 42.9 % (35.5-45.6) 01/11/22 13:40 MCV 99 fl (84-94) H 01/11/22 13:40 MCH 34 pg (28-32) H 01/11/22 13:40 MCHC 35 % (32-34) H 01/11/22 13:40 RDW 17.7 % (13.2-15.2) H 01/11/22 13:40 Plt Count 182 K/mm3 (140-440) 01/11/22 13:40 Lymph % (Auto) 24.5 % (13.4-35.0) 01/11/22 13:40 [place] % (Auto) 13.0 % (0.0-7.3) H 01/11/22 13:40 Eos % (Auto) 1.8 % (0.0-4.3) 01/11/22 13:40 Baso % (Auto) 0.4 % (0.0-1.8) 01/11/22 13:40 Lymph # (Auto) 1.1 K/mm3 (1.2-5.4) L 01/11/22 13:40 [place] # (Auto) 0.6 K/mm3 (0.0-0.8) 01/11/22 13:40 Eos # (Auto) 0.1 K/mm3 (0.0-0.4) 01/11/22 13:40 Baso # (Auto) 0.0 K/mm3 (0.0-0.1) 01/11/22 13:40 Seg Neutrophils % 60.3 % (40.0-70.0) 01/11/22 13:40 Seg Neutrophils # 2.6 K/mm3 (1.8-7.7) 01/11/22 13:40 Sodium 137 mmol/L (137-145) 01/11/22 13:40 Potassium 3.6 mmol/L (3.6-5.0) 01/11/22 13:40 Chloride 98.9 mmol/L (98-107) 01/11/22 13:40 Carbon Dioxide 26 mmol/L (22-30) 01/11/22 13:40 Anion Gap 16 mmol/L 01/11/22 13:40 BUN 9 mg/dL (9-20) 01/11/22 13:40 Creatinine 0.8 mg/dL (0.8-1.3) 01/11/22 13:40 Estimated GFR > 60 ml/min 01/11/22 13:40 BUN/Creatinine Ratio 11 % 01/11/22 13:40 Glucose 127 mg/dL (75-100) H 01/11/22 13:40 Hemoglobin A1c 6.0 % (4-6) 01/11/22 13:40 Calcium 9.9 mg/dL (8.4-10.2) 01/11/22 13:40 Total Bilirubin 0.50 mg/dL (0.1-1.2) 01/11/22 13:40 AST 41 units/L (5-40) H 01/11/22 13:40 ALT 30 units/L (7-56) 01/11/22 13:40 Alkaline Phosphatase 104 units/L (35-129) 01/11/22 13:40 Total Protein 6.9 g/dL (6.3-8.2) 01/11/22 13:40 Albumin 3.8 g/dL (3.9-5) L 01/11/22 13:40 Albumin/Globulin Ratio 1.2 % 01/11/22 13:40 Triglycerides 96 mg/dL (2-149) 01/11/22 13:40 Cholesterol 177 mg/dL (50-199) 01/11/22 13:40 LDL Cholesterol Direct 59 mg/dL (50-130) 01/11/22 13:40 HDL Cholesterol 101 mg/dL (40-59) H 01/11/22 13:40 Cholesterol/HDL Ratio 1.75 % 01/11/22 13:40 TSH 1.610 mlU/mL (0.270-4.200) 01/11/22 13:40 Syphilis IgG/IgM Ab Nonreactive (NonReactive) 01/11/22 12:19 Hepatitis A IgM Ab Non-reactive (NonReactive) 01/11/22 13:40 Hep Bs Antigen Non-reactive (Negative) 01/11/22 13:40 Hep B Core IgM Ab Non-reactive (NonReactive) 01/11/22 13:40 Hepatitis C Antibody Reactive (NonReactive) A 01/11/22 13:40 Gamino/IV: Voiding Method Toilet Active Medications - Current Medications Current Medications: Generic Name Dose Route Start Last Admin Trade Name Freq PRN Reason Stop Dose Admin Amlodipine Besylate 10 mg 01/11/22 10:00 01/13/22 09:04 Amlodipine 10 Mg Tab PO 10 mg DAILY YIMI Administration Duloxetine HCl 60 mg 01/11/22 10:00 01/13/22 21:14 Duloxetine 30 Mg Cap PO Not Given BID YIMI Folic Acid 1 mg 01/11/22 10:00 01/13/22 09:03 Folic Acid 1 Mg Tab PO 1 mg QDAY YIMI Administration Melatonin 5 mg 01/11/22 09:07 01/12/22 21:02 Melatonin 5 Mg Tab PO 5 mg QHS PRN Administration Sleep Nicotine 14 mg 01/11/22 10:00 01/13/22 09:10 Nicotine 14 Mg/24 Hr Patch TD Not Given DAILY YIMI Oxycodone/Acetaminophen 1 tab 01/11/22 18:23 01/13/22 20:48 Oxycodone /Acetaminophen 5-325mg Tab PO 1 tab Q12H PRN Administration Pain, Moderate (4-6) Pregabalin 100 mg 01/11/22 10:00 01/13/22 09:03 Pregabalin 50 Mg Cap PO 100 mg DAILY YIMI Administration Quetiapine Fumarate 100 mg 01/13/22 22:00 01/13/22 21:13 Quetiapine 100 Mg Tab PO 100 mg QHS YIMI Administration Thiamine HCl 100 mg 01/11/22 10:00 01/13/22 09:03 Thiamine 100 Mg Tab PO 100 mg QDAY YIMI Administration
[2022-01-14] MEDS: DULoxetine 30 MG CAP PO SCH ×2 (09:34→21:14)
[2022-01-14] MEDS: THIAMINE 100 MG TAB PO SCH (09:34)
[2022-01-14] MEDS: amLODIPine 10 MG TAB PO SCH (09:34)
[2022-01-14] MEDS: PREGABALIN 50 MG CAP PO SCH (09:35)
[2022-01-14] MEDS: FOLIC ACID 1 MG TAB PO SCH (09:35)
[2022-01-14] MEDS: NICOTINE 14 MG/24 HR PATCH TD SCH (09:35)
[2022-01-14] MEDS: oxyCODONE /ACETAMINOPHEN 5-325MG TAB PO PRN ×2 (09:35→20:36)
--- NOTE | 2022-01-14 09:36 | Progress Note ---
Subjective Date of service: 01/14/22 Principal diagnosis: Bipolar Disorder Subjective Comment: The patient was seen today. He says he feels pretty good. He says he slept better with the increase in Seroquel. The patient denies SI/HI or hallucinations of any kind. REVIEW OF SYSTEMS Constitutional: Negative for weight loss ENT: Negative for stridor Respiratory: Negative for cough or hemoptysis All other systems reviewed and are negative MENTAL STATUS EXAMINATION General Appearance and Behavior: Age appropriate, wearing appropriate clothes, cooperative, polite with questioning, good eye contact Cooperation: cooperative Psychomotor Behavior: Psychomotor normal Mood: pretty good Affect and affective range: congruent with stated affect Thought Process: Goal directed Thought Content: Reality oriented Speech: Normal volume, Regular rate and rhythm Suicidal Ideation: Denies Homicidal Ideation: Denies Hallucination: Denies Delusions: Denies Impulse Control: Limited Insight and Judgment: Limited Memory: Intact Attention:attentive Orientation: Alert and oriented Diagnoses: Bipolar disorder Treatment Plan Patient admitted for inpatient psychiatric evaluation, medication adjustment and close monitoring The patient's behavior, mood, sleep and appetite will be closely monitored. Patient enrolled in individual and group therapeutic sessions and encouraged to attend. Patient provided with a safe and structured environment. Patient's physical health needs will be addressed by the Hospitalist. Hospitalist Consulted Labs including CBC, CMP, Lipid profile and Hemoglobin A1C levels ordered for baseline reference Social Assessment will be completed and the Success Coach will work with patient and family to ensure a suitable and safe disposition Medication adjustment will be made as clinically indicated Seroquel 100mg po qhs Usual Wellness Sikhism/Preservation: - Start Trazodone 50 mg po QHS & 50 mg po QHS PRN between 10 PM & 2 AM for i nsomnia - Start Melatonin 5 mg po QHS to promote circadian rhythm The patient agreed on the treatment plan, understood the risk, benefit, alternative treatment, potential consequence of no treatment, and gave informed consent. Estimated days: 7 Post hospital care: primary care provider, psychiatric provider Case staffed with Dr. Fischer Medications and Allergies Allergies Allergy/AdvReac Type Severity Reaction Status Date / Time aspirin AdvReac Angioedema Verified 11/15/21 18:58 nitroglycerin AdvReac Swelling Verified 11/15/21 15:19 Home Medications Medication Instructions Recorded Confirmed Last Taken Type Folic Acid [Folvite] 1 mg PO QDAY 11/15/21 01/11/22 Unknown History Losartan [Cozaar] 100 mg PO QDAY 11/15/21 01/11/22 Unknown History Pregabalin [Lyrica] 100 mg PO DAILY 11/15/21 01/11/22 11/16/21 10:00 History Thiamine [Vitamin B-1] 100 mg PO QDAY 11/15/21 01/11/22 Unknown History amLODIPine 10 mg PO DAILY 11/15/21 01/11/22 Unknown History DULoxetine [Cymbalta] 60 mg PO BID #120 capsule 11/22/21 01/11/22 Unknown Rx Melatonin [Melatonin 5MG TAB] 5 mg PO QHS PRN #30 tablet 11/22/21 01/11/22 Unknown Rx Nicotine [Habitrol] 14 mg TD DAILY #30 patch 11/22/21 01/11/22 Unknown Rx QUEtiapine [SEROquel] 100 mg PO QAM #30 tablet 11/22/21 01/11/22 Unknown Rx QUEtiapine [SEROquel] 300 mg PO QHS #90 tablet 11/22/21 01/11/22 Unknown Rx Active Meds: Active Medications Amlodipine Besylate (Amlodipine 10 Mg Tab) 10 mg PO DAILY [facility] Last Admin: 01/13/22 09:04 Dose: 10 mg Duloxetine HCl (Duloxetine 30 Mg Cap) 60 mg PO BID [facility] Last Admin: 01/13/22 21:14 Dose: Not Given Folic Acid (Folic Acid 1 Mg Tab) 1 mg PO QDAY [facility] Last Admin: 01/13/22 09:03 Dose: 1 mg Melatonin (Melatonin 5 Mg Tab) 5 mg PO QHS PRN PRN Reason: Sleep Last Admin: 01/12/22 21:02 Dose: 5 mg Nicotine (Nicotine 14 Mg/24 Hr Patch) 14 mg TD DAILY [facility] Last Admin: 01/13/22 09:10 Dose: Not Given Oxycodone/Acetaminophen (Oxycodone /Acetaminophen 5-325mg Tab) 1 tab PO Q12H PRN PRN Reason: Pain, Moderate (4-6) Last Admin: 01/13/22 20:48 Dose: 1 tab Pregabalin (Pregabalin 50 Mg Cap) 100 mg PO DAILY [facility] Last Admin: 01/13/22 09:03 Dose: 100 mg Quetiapine Fumarate (Quetiapine 100 Mg Tab) 100 mg PO QHS [facility] Last Admin: 01/13/22 21:13 Dose: 100 mg Thiamine HCl (Thiamine 100 Mg Tab) 100 mg PO QDAY [facility] Last Admin: 01/13/22 09:03 Dose: 100 mg Results - Results Labs/Vitals: Laboratory Last Values WBC 4.3 K/mm3 (4.5-11.0) L 01/11/22 13:40 RBC 4.35 M/mm3 (3.65-5.03) 01/11/22 13:40 Hgb 14.8 gm/dl (11.8-15.2) 01/11/22 13:40 Hct 42.9 % (35.5-45.6) 01/11/22 13:40 MCV 99 fl (84-94) H 01/11/22 13:40 MCH 34 pg (28-32) H 01/11/22 13:40 MCHC 35 % (32-34) H 01/11/22 13:40 RDW 17.7 % (13.2-15.2) H 01/11/22 13:40 Plt Count 182 K/mm3 (140-440) 01/11/22 13:40 Lymph % (Auto) 24.5 % (13.4-35.0) 01/11/22 13:40 [place] % (Auto) 13.0 % (0.0-7.3) H 01/11/22 13:40 Eos % (Auto) 1.8 % (0.0-4.3) 01/11/22 13:40 Baso % (Auto) 0.4 % (0.0-1.8) 01/11/22 13:40 Lymph # (Auto) 1.1 K/mm3 (1.2-5.4) L 01/11/22 13:40 [place] # (Auto) 0.6 K/mm3 (0.0-0.8) 01/11/22 13:40 Eos # (Auto) 0.1 K/mm3 (0.0-0.4) 01/11/22 13:40 Baso # (Auto) 0.0 K/mm3 (0.0-0.1) 01/11/22 13:40 Seg Neutrophils % 60.3 % (40.0-70.0) 01/11/22 13:40 Seg Neutrophils # 2.6 K/mm3 (1.8-7.7) 01/11/22 13:40 Sodium 137 mmol/L (137-145) 01/11/22 13:40 Potassium 3.6 mmol/L (3.6-5.0) 01/11/22 13:40 Chloride 98.9 mmol/L (98-107) 01/11/22 13:40 Carbon Dioxide 26 mmol/L (22-30) 01/11/22 13:40 Anion Gap 16 mmol/L 01/11/22 13:40 BUN 9 mg/dL (9-20) 01/11/22 13:40 Creatinine 0.8 mg/dL (0.8-1.3) 01/11/22 13:40 Estimated GFR > 60 ml/min 01/11/22 13:40 BUN/Creatinine Ratio 11 % 01/11/22 13:40 Glucose 127 mg/dL (75-100) H 01/11/22 13:40 Hemoglobin A1c 6.0 % (4-6) 01/11/22 13:40 Calcium 9.9 mg/dL (8.4-10.2) 01/11/22 13:40 Total Bilirubin 0.50 mg/dL (0.1-1.2) 01/11/22 13:40 AST 41 units/L (5-40) H 01/11/22 13:40 ALT 30 units/L (7-56) 01/11/22 13:40 Alkaline Phosphatase 104 units/L (35-129) 01/11/22 13:40 Total Protein 6.9 g/dL (6.3-8.2) 01/11/22 13:40 Albumin 3.8 g/dL (3.9-5) L 01/11/22 13:40 Albumin/Globulin Ratio 1.2 % 01/11/22 13:40 Triglycerides 96 mg/dL (2-149) 01/11/22 13:40 Cholesterol 177 mg/dL (50-199) 01/11/22 13:40 LDL Cholesterol Direct 59 mg/dL (50-130) 01/11/22 13:40 HDL Cholesterol 101 mg/dL (40-59) H 01/11/22 13:40 Cholesterol/HDL Ratio 1.75 % 01/11/22 13:40 TSH 1.610 mlU/mL (0.270-4.200) 01/11/22 13:40 Syphilis IgG/IgM Ab Nonreactive (NonReactive) 01/11/22 12:19 Hepatitis A IgM Ab Non-reactive (NonReactive) 01/11/22 13:40 Hep Bs Antigen Non-reactive (Negative) 01/11/22 13:40 Hep B Core IgM Ab Non-reactive (NonReactive) 01/11/22 13:40 Hepatitis C Antibody Reactive (NonReactive) A 01/11/22 13:40 Last Vital Signs Temp 97.7 F 01/14/22 08:37 Pulse 74 01/14/22 08:37 Resp 18 01/14/22 08:37 BP 128/89 01/14/22 08:37 Pulse Ox 99 01/14/22 08:37
[2022-01-14] MEDS: QUEtiapine 100 MG TAB PO SCH (21:13)
--- NOTE | 2022-01-15 08:00 | Discharge Summary ---
Providers - Providers Date of Admission: 01/11/22 04:08 Date of discharge: 01/15/22 Attending physician: LYNETTE STUBBS MD 01/11/22 03:29 Consult to Physician [CONS] Routine Comment: Consulting Provider: AMAURI MCMAHON Physician Instructions: Reason For Exam: management of medical problems Primary care physician: CUSHION MAKER HAND Hospitalization Reason for admission: depression Admitting Diagnosis: F31.9 - BIPOLAR DISORDER, UNSPECIFIED Condition: Stable Hospital course: The patient was provided inpatient psychiatric treatment with safe and supportive care, medication adjustment, adverse effect monitoring, medical evaluations, medical treatments, assessment and psycho-education. The patient's mood, cognition, behavior, moral support are improved and stabilized. St the time of discharge, the patient had no endangering behavior and no debilitating adverse effects. The patient agreed on potential consequences of no treatment and gave informed consent. Disposition: 01 HOME / SELF CARE / HOMELESS Time spent for discharge: 35 Allergies/Adverse Reactions: Allergies aspirin Adverse Reaction (Verified 11/15/21 18:58) Angioedema nitroglycerin Adverse Reaction (Verified 11/15/21 15:19) Swelling Vital Signs: Last Vital Signs Temp 98.6 F 01/14/22 19:37 Pulse 74 01/14/22 19:37 Resp 18 01/14/22 20:36 BP 131/80 01/14/22 19:37 Pulse Ox 98 01/14/22 19:37 Last Lab: Laboratory Last Values WBC 4.3 K/mm3 (4.5-11.0) L 01/11/22 13:40 RBC 4.35 M/mm3 (3.65-5.03) 01/11/22 13:40 Hgb 14.8 gm/dl (11.8-15.2) 01/11/22 13:40 Hct 42.9 % (35.5-45.6) 01/11/22 13:40 MCV 99 fl (84-94) H 01/11/22 13:40 MCH 34 pg (28-32) H 01/11/22 13:40 MCHC 35 % (32-34) H 01/11/22 13:40 RDW 17.7 % (13.2-15.2) H 01/11/22 13:40 Plt Count 182 K/mm3 (140-440) 01/11/22 13:40 Lymph % (Auto) 24.5 % (13.4-35.0) 01/11/22 13:40 [place] % (Auto) 13.0 % (0.0-7.3) H 01/11/22 13:40 Eos % (Auto) 1.8 % (0.0-4.3) 01/11/22 13:40 Baso % (Auto) 0.4 % (0.0-1.8) 01/11/22 13:40 Lymph # (Auto) 1.1 K/mm3 (1.2-5.4) L 01/11/22 13:40 [place] # (Auto) 0.6 K/mm3 (0.0-0.8) 01/11/22 13:40 Eos # (Auto) 0.1 K/mm3 (0.0-0.4) 01/11/22 13:40 Baso # (Auto) 0.0 K/mm3 (0.0-0.1) 01/11/22 13:40 Seg Neutrophils % 60.3 % (40.0-70.0) 01/11/22 13:40 Seg Neutrophils # 2.6 K/mm3 (1.8-7.7) 01/11/22 13:40 Sodium 137 mmol/L (137-145) 01/11/22 13:40 Potassium 3.6 mmol/L (3.6-5.0) 01/11/22 13:40 Chloride 98.9 mmol/L (98-107) 01/11/22 13:40 Carbon Dioxide 26 mmol/L (22-30) 01/11/22 13:40 Anion Gap 16 mmol/L 01/11/22 13:40 BUN 9 mg/dL (9-20) 01/11/22 13:40 Creatinine 0.8 mg/dL (0.8-1.3) 01/11/22 13:40 Estimated GFR > 60 ml/min 01/11/22 13:40 BUN/Creatinine Ratio 11 % 01/11/22 13:40 Glucose 127 mg/dL (75-100) H 01/11/22 13:40 Hemoglobin A1c 6.0 % (4-6) 01/11/22 13:40 Calcium 9.9 mg/dL (8.4-10.2) 01/11/22 13:40 Total Bilirubin 0.50 mg/dL (0.1-1.2) 01/11/22 13:40 AST 41 units/L (5-40) H 01/11/22 13:40 ALT 30 units/L (7-56) 01/11/22 13:40 Alkaline Phosphatase 104 units/L (35-129) 01/11/22 13:40 Total Protein 6.9 g/dL (6.3-8.2) 01/11/22 13:40 Albumin 3.8 g/dL (3.9-5) L 01/11/22 13:40 Albumin/Globulin Ratio 1.2 % 01/11/22 13:40 Triglycerides 96 mg/dL (2-149) 01/11/22 13:40 Cholesterol 177 mg/dL (50-199) 01/11/22 13:40 LDL Cholesterol Direct 59 mg/dL (50-130) 01/11/22 13:40 HDL Cholesterol 101 mg/dL (40-59) H 01/11/22 13:40 Cholesterol/HDL Ratio 1.75 % 01/11/22 13:40 TSH 1.610 mlU/mL (0.270-4.200) 01/11/22 13:40 Syphilis IgG/IgM Ab Nonreactive (NonReactive) 01/11/22 12:19 Hepatitis A IgM Ab Non-reactive (NonReactive) 01/11/22 13:40 Hep Bs Antigen Non-reactive (Negative) 01/11/22 13:40 Hep B Core IgM Ab Non-reactive (NonReactive) 01/11/22 13:40 Hepatitis C Antibody Reactive (NonReactive) A 01/11/22 13:40 Core Measure Documentation - Palliative Care Palliative Care/ Comfort Measures: Not Applicable - Core Measures Any of the following diagnoses?: none Exam - Constitutional Vitals: Temp Pulse Resp BP Pulse Ox 98.6 F 74 18 131/80 98 01/14/22 19:37 01/14/22 19:37 01/14/22 20:36 01/14/22 19:37 01/14/22 19:37 General appearance: Present: no acute distress - EENT Eyes: Present: PERRL, EOM intact ENT: hearing intact, clear oral mucosa - Neck Neck: Present: supple, normal ROM - Respiratory Respiratory effort: normal Plan Activity: advance as tolerated Weight Bearing Status: Weight Bear as Tolerated Care Plan Goals: Maintain good and stable mental health Plan of Treatment: The patient should be compliant with medications, not to use drugs, and not to drink alcohol. The patient understands that if suicidal ideas, homicidal ideas or any endangering feeling arise, the patient should seek assistance including, but not limited to crisis hotline, and emergency room. Assessment: Bipolar Disorder Follow up with: PRIMARY CARE, [Primary Care Provider] - 7 Days Prescriptions: QUEtiapine [SEROquel] 100 mg PO QHS #30 tablet Ibuprofen [Motrin 800 MG tab] 800 mg PO Q8HR PRN #90 tablet PRN Reason: Pain, Moderate (4-6)
--- NOTE | 2022-01-15 08:51 | Progress Note ---
Assessment and Plan Assessment and plan: #Bipolar disorder #Depression #Chronic pain #Hypertension #Obstructive sleep apnea #Obesity Hypoventilation Syndrome #hepatitis C #Polysubstance abuse #Methamphetamine abuse #THC abuse #Cocaine abuse #Alcohol abuse - behavioral health counseling administered which included education on benefits of alcohol cessation as well as options for quitting. +15 min. #Advance care planning Disease education conducted, care plan discussed, diagnoses discussed, prognosis discussed, patient is full code, patient acknowledges understanding and agree with care plan, +30 minutes. Plan -Psychiatric medication management per inpatient psych service -Monitor blood pressure daily -Accu-Cheks ACHS -Resume amlodipine Resume home pregabalin, duloxetine. - patient also takes oxycodone 10/325 mg po tid per [place] PDMP aware. will restart but at lower dose. can escalate if pain is still not under control. - d/w auditor in charge, patient had been eval OP for JORGE LUIS, did not need bipap. BIPAP order d/c. -Laboratory work reviewed. Hep C positive. will need outpatient appt with department of health. IM service will continue to follow while patient remains in hospital. History Interval history: No acute complaints. Calm and cooperative today. He states he is ready to go home Hospitalist Physical - Physical exam Narrative exam: Physical Exam: VITAL SIGNS: Reviewed. GENERAL: The patient appears normally developed, Vital signs as documented. HEAD: No signs of head trauma. EYES: Pupils are equal. Extraocular motions intact. EARS: Hearing grossly intact. MOUTH: Oropharynx is normal. NECK: No adenopathy, no JVD. CHEST: Chest with clear breath sounds bilaterally. No wheezes, rales, or rhonchi. CARDIAC: Regular rate and rhythm. S1 and S2, without murmurs, gallops, or rubs. VASCULAR: No Edema. Peripheral pulses normal and equal in all extremities. ABDOMEN: Soft, non tender and non distended. No rebound or guarding, and no masses palpated. Bowel Sounds normal. MUSCULOSKELETAL: Good range of motion of all major joints. Extremities without clubbing, cyanosis or edema. NEUROLOGIC EXAM: Alert and oriented x 4. no focal sensory or strength deficits. PSYCHIATRIC: Mood normal. SKIN: detail exam as documented in skin assessment - Constitutional Vitals: Temp Pulse Resp BP Pulse Ox 98.6 F 74 18 131/80 98 01/14/22 19:37 01/14/22 19:37 01/14/22 20:36 01/14/22 19:37 01/14/22 19:37 General appearance: Present: no acute distress Results - Labs CBC & Chem 7: 01/11/22 13:40 01/11/22 13:40 Labs: Laboratory Last Values WBC 4.3 K/mm3 (4.5-11.0) L 01/11/22 13:40 RBC 4.35 M/mm3 (3.65-5.03) 01/11/22 13:40 Hgb 14.8 gm/dl (11.8-15.2) 01/11/22 13:40 Hct 42.9 % (35.5-45.6) 01/11/22 13:40 MCV 99 fl (84-94) H 01/11/22 13:40 MCH 34 pg (28-32) H 01/11/22 13:40 MCHC 35 % (32-34) H 01/11/22 13:40 RDW 17.7 % (13.2-15.2) H 01/11/22 13:40 Plt Count 182 K/mm3 (140-440) 01/11/22 13:40 Lymph % (Auto) 24.5 % (13.4-35.0) 01/11/22 13:40 [place] % (Auto) 13.0 % (0.0-7.3) H 01/11/22 13:40 Eos % (Auto) 1.8 % (0.0-4.3) 01/11/22 13:40 Baso % (Auto) 0.4 % (0.0-1.8) 01/11/22 13:40 Lymph # (Auto) 1.1 K/mm3 (1.2-5.4) L 01/11/22 13:40 [place] # (Auto) 0.6 K/mm3 (0.0-0.8) 01/11/22 13:40 Eos # (Auto) 0.1 K/mm3 (0.0-0.4) 01/11/22 13:40 Baso # (Auto) 0.0 K/mm3 (0.0-0.1) 01/11/22 13:40 Seg Neutrophils % 60.3 % (40.0-70.0) 01/11/22 13:40 Seg Neutrophils # 2.6 K/mm3 (1.8-7.7) 01/11/22 13:40 Sodium 137 mmol/L (137-145) 01/11/22 13:40 Potassium 3.6 mmol/L (3.6-5.0) 01/11/22 13:40 Chloride 98.9 mmol/L (98-107) 01/11/22 13:40 Carbon Dioxide 26 mmol/L (22-30) 01/11/22 13:40 Anion Gap 16 mmol/L 01/11/22 13:40 BUN 9 mg/dL (9-20) 01/11/22 13:40 Creatinine 0.8 mg/dL (0.8-1.3) 01/11/22 13:40 Estimated GFR > 60 ml/min 01/11/22 13:40 BUN/Creatinine Ratio 11 % 01/11/22 13:40 Glucose 127 mg/dL (75-100) H 01/11/22 13:40 Hemoglobin A1c 6.0 % (4-6) 01/11/22 13:40 Calcium 9.9 mg/dL (8.4-10.2) 01/11/22 13:40 Total Bilirubin 0.50 mg/dL (0.1-1.2) 01/11/22 13:40 AST 41 units/L (5-40) H 01/11/22 13:40 ALT 30 units/L (7-56) 01/11/22 13:40 Alkaline Phosphatase 104 units/L (35-129) 01/11/22 13:40 Total Protein 6.9 g/dL (6.3-8.2) 01/11/22 13:40 Albumin 3.8 g/dL (3.9-5) L 01/11/22 13:40 Albumin/Globulin Ratio 1.2 % 01/11/22 13:40 Triglycerides 96 mg/dL (2-149) 01/11/22 13:40 Cholesterol 177 mg/dL (50-199) 01/11/22 13:40 LDL Cholesterol Direct 59 mg/dL (50-130) 01/11/22 13:40 HDL Cholesterol 101 mg/dL (40-59) H 01/11/22 13:40 Cholesterol/HDL Ratio 1.75 % 01/11/22 13:40 TSH 1.610 mlU/mL (0.270-4.200) 01/11/22 13:40 Syphilis IgG/IgM Ab Nonreactive (NonReactive) 01/11/22 12:19 Hepatitis A IgM Ab Non-reactive (NonReactive) 01/11/22 13:40 Hep Bs Antigen Non-reactive (Negative) 01/11/22 13:40 Hep B Core IgM Ab Non-reactive (NonReactive) 01/11/22 13:40 Hepatitis C Antibody Reactive (NonReactive) A 01/11/22 13:40 Gamino/IV: Voiding Method Toilet Active Medications - Current Medications Current Medications: Generic Name Dose Route Start Last Admin Trade Name Freq PRN Reason Stop Dose Admin Amlodipine Besylate 10 mg 01/11/22 10:00 01/14/22 09:34 Amlodipine 10 Mg Tab PO 10 mg DAILY YIMI Administration Duloxetine HCl 60 mg 01/11/22 10:00 01/14/22 21:14 Duloxetine 30 Mg Cap PO Not Given BID YIMI Folic Acid 1 mg 01/11/22 10:00 01/14/22 09:35 Folic Acid 1 Mg Tab PO 1 mg QDAY YIMI Administration Melatonin 5 mg 01/11/22 09:07 01/12/22 21:02 Melatonin 5 Mg Tab PO 5 mg QHS PRN Administration Sleep Nicotine 14 mg 01/11/22 10:00 01/14/22 09:35 Nicotine 14 Mg/24 Hr Patch TD Not Given DAILY YIMI Oxycodone/Acetaminophen 1 tab 01/11/22 18:23 01/14/22 20:36 Oxycodone /Acetaminophen 5-325mg Tab PO 1 tab Q12H PRN Administration Pain, Moderate (4-6) Pregabalin 100 mg 01/11/22 10:00 01/14/22 09:35 Pregabalin 50 Mg Cap PO 100 mg DAILY YIMI Administration Quetiapine Fumarate 100 mg 01/13/22 22:00 01/14/22 21:13 Quetiapine 100 Mg Tab PO 100 mg QHS YIMI Administration Thiamine HCl 100 mg 01/11/22 10:00 01/14/22 09:34 Thiamine 100 Mg Tab PO 100 mg QDAY YIMI Administration
[2022-01-15 09:14] VITALS: BP 133/93
[2022-01-15] MEDS: NICOTINE 14 MG/24 HR PATCH TD SCH (09:32)
[2022-01-15] MEDS: DULoxetine 30 MG CAP PO SCH (09:32)
[2022-01-15] MEDS: PREGABALIN 50 MG CAP PO SCH (09:33)
[2022-01-15] MEDS: amLODIPine 10 MG TAB PO SCH (09:33)
[2022-01-15] MEDS: THIAMINE 100 MG TAB PO SCH (09:34)
[2022-01-15] MEDS: FOLIC ACID 1 MG TAB PO SCH (09:37)
== END 2022-01-15 11:10 | disposition home or self-care (01) | DRG 885 ==
LOC: 3A 17:05 → UNDOADMIN 17:05 → 5A 01-11 04:08
PROVIDERS: ADMIT Psychiatry & Neurology Psychiatry; ATTEND Psychiatry & Neurology Psychiatry
DX: F31.9 Bipolar disorder, unspecified (principal); Z20.822 Contact with and (suspected) exposure to COVID-19; I10 Essential (primary) hypertension; G89.29 Other chronic pain; Z59.00 Homelessness unspecified; E66.2 Morbid (severe) obesity with alveolar hypoventilation; F10.10 Alcohol abuse, uncomplicated; Y90.9 Presence of alcohol in blood, level not specified; F14.10 Cocaine abuse, uncomplicated; F15.10 Other stimulant abuse, uncomplicated; F12.10 Cannabis abuse, uncomplicated; Z68.27 Body mass index [BMI] 27.0-27.9, adult; Z88.6 Allergy status to analgesic agent; Z88.8 Allergy status to other drugs, medicaments and biological substances
CPT/HCPCS: 36415; 71045; 80053; 80061; 80074; 83036; 84443; 85025; 86592; G0378; U0003